=== PATIENT | female | born 1980 | race Caucasian/White ===

== ENCOUNTER → 2017-01-05 | Outpatient (CLI) | payer BC ==
[~2017-01-05] MED LIST: PRENTAB26 PO; VALA500T60 PO; [UNRECOGNIZED DRUG - OTHER] PO
== END | disposition home or self-care (01) ==
LOC: C.LABSPEC 10:53
PROVIDERS: ATTEND Physician Assistant
DX: L29.8 Other pruritus (principal); N94.9 Unspecified condition associated with female genital organs and menstrual cycle

== ENCOUNTER → 2017-11-30 | Outpatient (CLI) | payer BC ==
--- NOTE | 2017-11-30 11:26 | DIAGNOSTIC IMAGING REPORT ---
HYSTEROSALPINGOGRAM CLINICAL HISTORY: Ovarian dysfunction. History of ectopic . COMPARISON STUDY: Hysterosalpingogram dated 08/27/2015. FINDINGS: Fluoroscopic assistance was provided to the tobacco weigher in performing a hysterosalpingogram. The uterine cavity distends normally. No filling defects are identified. There is normal filling of the fallopian tubes, with free spillage of contrast into pelvis bilaterally. Fluoroscopy time: 0.2 minutes. IMPRESSION: Normal hysterosalpingogram. The fallopian tubes are widely patent bilaterally. Electronically signed by: Bill Carvalho M.D. 11/30/2017 11:24 AM Dictated Date/Time: 11/30/2017 11:22 AM
--- NOTE | 2017-11-30 11:40 | OPERATIVE REPORT ---
DATE OF OPERATION: 11/30/2017 PREOPERATIVE DIAGNOSIS: Infertility. POSTOPERATIVE DIAGNOSIS: Same. PROCEDURE: Injection of contrast media for hysterosalpingogram. SURGEON: Dr. Hawa Daley. DESCRIPTION OF PROCEDURE: The patient was placed on the fluoroscopy table in the lithotomy position. Speculum placed. Cervix cleansed with Betadine x3. Allis clamp used on the anterior lip to stabilize the cervix. [place] uterine manipulator primed with x-ray contrast media gently placed through the cervical os. The patient repositioned on the fluoroscopy table. Injection took place with preliminary findings of normal cavity fill and normal spill of bilateral fallopian tubes. Formal report to be dictated by radiology. Instruments all removed. The patient tolerated the procedure well. I attest to the content of the Intraoperative Record and any orders documented therein. Any exception s are noted below.
== END | disposition home or self-care (01) ==
LOC: C.RAD 10:45
PROVIDERS: ATTEND Obstetrics & Gynecology
DX: E28.9 Ovarian dysfunction, unspecified (principal)